=== PATIENT | male | born 1955 | race Caucasian/White ===

== ENCOUNTER → 2024-09-28 | Emergency (ER) | payer OTHER ==
[~2024-09-28] VITALS: Ht 172.7 cm; Wt 80.7 kg
[~2024-09-28] MED LIST: CIALIS20 MG PO; PROPANOLOL PO; PROTONIX20 MG PO; XARELTO20 MG PO
== END | disposition left against medical advice (07) ==
LOC: ER 12:06
DX: Z53.21 Procedure and treatment not carried out due to patient leaving prior to being seen by health care provider (principal)